=== PATIENT | male | born 1990 | race Hispanic/Latino ===

== ENCOUNTER 2022-12-25 10:22 | Emergency (ER) | payer SELFPAY ==
[2022-12-25 10:23] VITALS: BP 134/82; PULSE 81; RESP 18; TEMP 36.2; O2SAT 98; BMI 30.9
--- NOTE | 2022-12-25 10:46 | EDS_ITS ---
HPI History of Present Illness Chief Complaint: Laceration Informant: patient Narrative Narrative: Pdgso-ybjn-jihlidit 32-year-old male non-Polish speaking accidentally cut his left hand with a knife at work. Last tetanus unknown. No other injuries. PFSH PFSH Medical History no medical history no medical history Home Medications cefadroxil 500 mg capsule 500 mg PO BID #10 caps 12/25/22 [Rx Last Taken Unknown] Allergy/AdvReac Type Severity Reaction Status Date / Time No Known Allergies Allergy Verified 12/25/22 10:27 Family History no significant family his Surgical History no surgical history Social History Smoking Status: Never smoker ROS ROS ED Constitutional Constitutional ED: Denies chills or fever(s) Musculoskeletal Musculoskeletal: Reports extremity pain; Denies neck pain Integumentary Reports wounds; Denies Abrasions or rash Neurologic Neurologic: Denies paresthesias or weakness EXAM Physical Exam Const Vital Signs: 12/25/22 10:23 Temperature 97.1 F L Temperature Source Temporal Pulse Rate 81 Respiratory Rate 18 Blood Pressure 134/82 H Blood Pressure Mean 99 Pulse Ox 98 Oxygen Delivery Method Room Air Positive well nourished and well developed General Appearance ED: well developed and NAD Neck full ROM and supple Back/Spine normal ROM and normal to inspection Extremity Extremity Narrative: Laceration at the webspace between the left thumb and index finger, with swelling in the thenar eminence, given the patient limited range of motion altho ugh he is able to move his thumb in all directions. No bony tenderness. Bleeding is controlled, but with gentle examination of the area, blood spurts from the wound and is then the risk of leaving this, resolving with holding pressure. No arterial bleeding. Neuro oriented x3, no focal motor deficits and no sensory deficits noted Sensorium / Orientation: alert Psych mental status grossly normal and thought process normal Skin Skin Narrative: 1 cm clean linear full-thickness laceration to the first webspace between the thumb and index finger of the left hand. Rashes: no rashes MDM MDM MDM Narrative Medical decision making narrative: Laceration was repaired see the procedure note, he does have some hematoma in the thenar eminence which will limit him to some degree, but he is able to move everything does not need any x-rays. Since I do not know how deep the puncture/injury was, I am putting him on a short course of prophylactic antibiotics, given appropriate work restrictions with follow-up [facility] with [facility]. Procedures Lacerations L hand: Length: 1 cm Depth: Sub Q Shape: Linear Prep: Sterile Conditions and Chlorhexadine Laceration repair: Irrigated (100 cc sterile saline), Lidocaine with epi (1cc, 1%), Local and Skin sutures Number of Sutures/Lamont: 2 Suture Information: Ethilon, Simple and 5-0 Discharge Plan Triage Chief Complaint: Laceration ED Provider: Hussein Grayson Dx/Rx/DC Orders Clinical Impression: Laceration of hand, left, Bkjnvveuvd-rluroyx-wolzdhuvf (DTP) vaccination Instructions: ED Laceration, Hand: All Closures Prescriptions: New cefadroxil 500 mg capsule 500 mg PO BID Qty: 10 0RF Stand Alone Forms: Work Status Form Primary Care Provider: Care Physician,No Primary Referrals: Corporate,[facility], [place] [Group of Physicians] - 10-14 Days suture removal (Call for appointment to be seen soon as possible in addition to 2 weeks) NOT,DEFINED [Non-Staff] - Print Language: Khmer Disposition Disposition: Home, Self Care
[2022-12-25] MEDS: Diphth,Pertuss(Acell),Tet Vac 0.5 ML Vial IM (10:56)
== END 2022-12-25 13:01 | disposition home or self-care (01) ==
PROVIDERS: Emergency Provider Emergency Medicine; Visit Provider Emergency Medicine
DX: S61.412A Laceration without foreign body of left hand, initial encounter (principal); W26.0XXA Contact with knife, initial encounter; Y99.0 Civilian activity done for income or pay; Z23 Encounter for immunization
CPT/HCPCS: 12001; 90471; 90715; 99284